=== PATIENT | female | born 1975 | race Caucasian/White ===

== ENCOUNTER 2017-02-27 18:11 | Emergency (ER) | payer BC, OTHER ==
[~2017-02-27] VITALS: Ht 152.4 cm; Wt 81.6 kg
--- NOTE | 2017-02-27 18:30 | NUR ---
Patient to ER bed 07 to gown for evaluation. Side rails up.
[2017-02-27 18:32] VITALS: BP_SYST 148
--- NOTE | 2017-02-27 18:35 | NUR ---
Pt brought by self, A&Ox4, pt c/o headache,neck pain, back pain , fever and chills for the last three days,skin pink and warm, cap refill <3, VSS, afebrile at this time, pt denies chest pain, respirations even and unlabored.
--- NOTE | 2017-02-27 18:38 | NUR ---
Dr Boyer at bedside examining patient
[2017-02-27 18:59] VITALS: BP_SYST 123
== END 2017-02-27 18:59 | disposition home or self-care (01) ==
LOC: SED 18:11
DX: B34.9 Viral infection, unspecified (principal)
CPT/HCPCS: 99281